=== PATIENT | male | born 1950 | race Caucasian/White ===

== ENCOUNTER → 2018-09-09 | Outpatient (CLI) | payer OTHER ==
[~2018-09-09] VITALS: Ht 185.4 cm; Wt 95.3 kg
[~2018-09-09] MED LIST: ASPIRIN325; BACTRIM DS TAB1 EAC1 PO; COLACE100 MG PO; ENOXAPARIN40 MG/0.1 SUBQ; GENTAMICIN 0.1%15 G2 TOP; IBUPROFEN 600600 M1 PO; MAGOX 400400 MG PO; MECLIZINE HCL25 M1 PO; OXYCODONE HCL 55 MG PO; PEPCID20 MG PO; POTASSIUM20 PO; RESTORIL15 MG PO; TEARS NATURALE1 EACH OPHTHALMIC; TYLENOL325 MG PO; ZYVOX600 MG PO
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
[2018-09-09 09:49] VITALS: BP 123/76
== END ==
LOC: SEN 09:31
DX: L25.9 Unspecified contact dermatitis, unspecified cause (principal); J86.9 Pyothorax without fistula; Z89.512 Acquired absence of left leg below knee